=== PATIENT | female | born 1990 | race Caucasian/White ===

== ENCOUNTER 2017-05-16 11:15 | Outpatient (CLI) | payer BC ==
[2017-05-16 11:49] LABS: BASOPHILS # (AUTO) 0.1 10^3/uL (0.0-0.1); BASOPHILS % (AUTO) 0.6 %; EOSINOPHILS # (AUTO) 0.3 10^3/uL (0.0-0.7); EOSINOPHILS % (AUTO) 3.1 %; HGB - HEMOGLOBIN 14.4 g/dL (12.0-16.0); LYMPHOCYTES # (AUTO) 2.3 10^3/uL (1.5-3.5); LYMPHOCYTES % (AUTO) 27.3 %; MEAN CORPUSCULAR HEMOGLOBIN 32.8 pg (27.0-31.0); MEAN CORPUSCULAR HGB CONC 34.5 g/dL (32.0-36.0); MEAN CORPUSCULAR VOLUME 95.2 fL (81.0-99.0); MEAN PLATELET VOLUME 8.1 fL (7.9-10.8); MONOCYTES # (AUTO) 0.4 10^3/uL (0.0-1.0); MONOCYTES % (AUTO) 5.1 %; NEUTROPHILS # (AUTO) 5.4 10^3/uL (1.5-6.6); NEUTROPHILS % (AUTO) 63.9 %; PLT - PLATELET COUNT 290 10^3/uL (130-450); RED BLOOD COUNT 4.39 10^6/uL (4.20-5.40); RED CELL DISTRIBUTION WIDTH 13.6 % (12.0-15.0); WHITE BLOOD COUNT 8.5 x10^3/uL (4.8-10.8)
[2017-05-16 12:13] LABS: ALBUMIN 4.4 g/dL (3.2-5.5); ALKALINE PHOSPHATASE 62 IU/L (42-121); ALT ALANINE AMINOTRANSFERASE 41 IU/L (10-60); AST ASPARTATE AMINOTRANSFERASE 25 IU/L (10-42); BILIRUBIN,DIRECT 0.1 mg/dL (0.1-0.5); BILIRUBIN,TOTAL 0.6 mg/dL (0.2-1.0); TOTAL PROTEIN 7.5 g/dL (6.7-8.2)
[2017-05-16 12:24] LABS: HCG,QUALITATIVE BLOOD NEGATIVE
[2017-05-16 13:40] LABS: FOLLICLE STIMULATING HORMONE 6.04 mIU/mL
== END 2017-05-16 11:16 | disposition home or self-care (01) ==
LOC: LAB 11:15
PROVIDERS: ATTEND Dermatology
DX: Z79.899 Other long term (current) drug therapy (principal)
CPT/HCPCS: 36415; 80076; 81599; 83001; 83002; 84402; 84403; 84478; 84703; 85025

== ENCOUNTER 2019-01-08 03:42 | Outpatient (CLI) | payer MEDICAID | END 2019-01-08 03:43 | disposition EMS.NT | LOC: EMS 03:42 | PROVIDERS: ATTEND Surgery | DX: M54.2 Cervicalgia (principal); M51.9 Unspecified thoracic, thoracolumbar and lumbosacral intervertebral disc disorder; R11.0 Nausea; R42 Dizziness and giddiness; Y04.8XXA Assault by other bodily force, initial encounter ==

== ENCOUNTER 2019-02-20 08:05 | Outpatient (CLI) | payer MEDICAID | END 2019-02-20 08:06 | disposition critical access hospital (66) | LOC: EMS 08:05 | PROVIDERS: ATTEND Surgery | DX: R11.2 Nausea with vomiting, unspecified (principal); H53.8 Other visual disturbances; R51 Headache | CPT/HCPCS: A0425; A0429; A0999 ==

== ENCOUNTER 2019-02-20 08:25 | Emergency (ER) | payer MEDICAID ==
[2019-02-20 08:44] VITALS: BP 109/73
--- NOTE | 2019-02-20 09:18 | ED Physician Documentation ---
History of Present Illness - Stated complaint Stated Complaint: MED REACTION - Chief complaint Chief Complaint: General - History obtained from History obtained from: Patient, EMS - History of Present Illness Timing: Today - Additonal information Additional information: 28-year-old female with a history of PTSD is now 16 weeks and she is beginning to take some Effexor Exar for acute anxiety with panic attack. She states that she took her first dose this morning and within 20 minutes began to feel a plethora of symptoms including blurring of her vision and tachypnea. She has had resolution of her symptoms in route to the hospital. Review of Systems Constitutional: denies: Fever Eyes: denies: Decreased vision Ears: denies: Ear pain Nose: denies: Congestion Throat: denies: Sore throat Cardiac: denies: Chest pain / pressure, Palpitations Respiratory: denies: Dyspnea, Cough GI: reports: Abdominal Pain, Nausea, Vomiting : denies: Dysuria, Frequency Skin: denies: Rash Musculoskeletal: denies: Neck pain, Back pain, Extremity pain Neurologic: denies: Generalized weakness, Focal weakness, Numbness PD PAST MEDICAL HISTORY - Past Medical History Psych: Anxiety, Post traumatic stress disorder - Present Medications Home Medications: Ambulatory Orders Medication Instructions Recorded Confirmed RX: hydrOXYzine HCl [Hydroxyzine 10 mg PO 02/20/19 HCl] Venlafaxine [Effexor] 37.5 mg PO BID 02/20/19 02/20/19 cephALEXin [Keflex] 250 mg PO Q6H 02/20/19 02/20/19 - Allergies Allergies/Adverse Reactions: Allergies Allergy/AdvReac Type Severity Reaction Status Date / Time amoxicillin Allergy Hives Verified 02/20/19 08:35 - Social History Does the pt smoke?: No Smoking Status: Never smoker Does the pt drink ETOH?: No Does the pt have substance abuse?: No PD ED PE NORMAL - Vitals Vital signs reviewed: Yes (normal ) - General General: Alert and oriented X 3, No acute distress, Well developed/nourished - HEENT HEENT: Atraumatic, PERRL, EOMI - Neck Neck: Supple, no meningeal sign, No bony TTP - Cardiac Cardiac: RRR, No murmur - Respiratory Respiratory: No respiratory distress, Clear bilaterally - Abdomen Abdomen: Soft, Non tender, Other (gravid uterus below the umbilicus) - Back Back: No CVA TTP, No spinal TTP - Derm Derm: Normal color, Warm and dry, No rash - Extremities Extremities: No deformity, No edema - Neuro Neuro: Alert and oriented X 3, pan shaker 2-12 intact, No motor deficit, No sensory deficit, Normal speech Eye Opening: Spontaneous Motor: Obeys Commands Verbal: Oriented GCS Score: 15 - Psych Psych: Normal mood, Normal affect Results - Vitals Vitals: Vital Signs - 24 hr 02/20/19 08:31 Temperature 36.7 C Heart Rate 84 Respiratory 18 Rate Blood Pressure 109/73 O2 Saturation 100 Oxygen O2 Source Room air Procedures - Bedside sono Bedside sono by EMP: With use of bedside ultrasound the fetus is imaged has a heart rate of 144 and the biparietal diameter indicates a gestational age of 16 weeks 1 day. PD MEDICAL DECISION MAKING - ED course Complexity details: reviewed results, re-evaluated patient, considered differential, d/w patient ED course: 28 y/o female with anxiety and PTSD has started effexor and has had a reaction including nausea, vomiting, dyspnea and visual changes occurring within 20 minutes of taking the medication and now resolved. The patient's symptoms were resolved she had a photo of the baby on ultrasound appearing well and she left AMA before I was able to make it back into her room. Departure - Departure Disposition: Against Medical Advice Clinical Impression: Medication side effects Condition: Good Discharge Date/Time: 02/20/19 09:26
== END 2019-02-20 09:26 | disposition left against medical advice (07) ==
LOC: EDUNIT# → ED 08:25
DX: O9A.212 Injury, poisoning and certain other consequences of external causes complicating pregnancy, second trimester (principal); R11.2 Nausea with vomiting, unspecified; R06.82 Tachypnea, not elsewhere classified; H53.8 Other visual disturbances; T43.215A Adverse effect of selective serotonin and norepinephrine reuptake inhibitors, initial encounter; Z3A.16 16 weeks gestation of pregnancy
CPT/HCPCS: 80053; 83690; 85025; 99282; 99283

== ENCOUNTER 2020-12-22 19:47 | Outpatient (CLI) | payer MEDICAID | END 2020-12-22 19:48 | disposition critical access hospital (66) | LOC: EMS 19:47 | DX: L53.9 Erythematous condition, unspecified (principal); R60.0 Localized edema | CPT/HCPCS: A0425; A0429 ==

== ENCOUNTER 2020-12-22 20:08 | Emergency (ER) | payer MEDICAID ==
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
[2020-12-22 20:55] LABS: BASOPHILS % (AUTO) 0.2 %; EOSINOPHILS # (AUTO) 0.2 10^3/uL (0.0-0.7); EOSINOPHILS % (AUTO) 2.1 %; HCT - HEMATOCRIT 38.6 % (37.0-47.0); HGB - HEMOGLOBIN 12.6 g/dL (12.0-16.0); LYMPHOCYTES # (AUTO) 2.9 10^3/uL (1.5-3.5); LYMPHOCYTES % (AUTO) 28.4 %; MEAN CORPUSCULAR HEMOGLOBIN 32.6 pg (27.0-31.0); MEAN CORPUSCULAR HGB CONC 32.6 g/dL (32.0-36.0); MEAN CORPUSCULAR VOLUME 99.7 fL (81.0-99.0); MEAN PLATELET VOLUME 9.8 fL (7.9-10.8); MONOCYTES # (AUTO) 0.6 10^3/uL (0.0-1.0); MONOCYTES % (AUTO) 5.8 %; NEUTROPHILS # (AUTO) 6.4 10^3/uL (1.5-6.6); NEUTROPHILS % (AUTO) 63.3 %; PLT - PLATELET COUNT 236 10^3/uL (130-450); RED BLOOD COUNT 3.87 10^6/uL (4.20-5.40); RED CELL DISTRIBUTION WIDTH 12.6 % (12.0-15.0); WHITE BLOOD COUNT 10.1 x10^3/uL (4.8-10.8)
[2020-12-22] MEDS ORDERED: IOVERSOL 320 100 ML VIAL IVP ONE ×2 (20:55→23:34)
[2020-12-22 21:04] LABS: INFECTIOUS MONONUCLEOSIS NEGATIVE (Negative)
[2020-12-22 21:09] LABS: ALBUMIN 4.3 g/dL (3.2-5.5); ALBUMIN/GLOBULIN RATIO 1.8 (1.0-2.2); BILIRUBIN,TOTAL 0.7 mg/dL (0.2-1.0); CALCIUM 9.1 mg/dL (8.5-10.3); CREATININE 0.7 mg/dL (0.4-1.0); POTASSIUM 3.8 mmol/L (3.5-5.0); TOTAL PROTEIN 6.7 g/dL (6.7-8.2)
--- NOTE | 2020-12-22 21:27 | XRAY Report ---
PROCEDURE: Chest 1 View X-Ray INDICATIONS: chest pain TECHNIQUE: One view of the chest was acquired. COMPARISON: None. FINDINGS: Surgical changes and devices: None. Lungs and pleura: No pleural effusions or pneumothorax. Lungs are clear. Mediastinum: Mediastinal contours appear normal. Heart size is normal. Bones and chest wall: No suspicious bony lesions. Overlying soft tissues appear unremarkable. IMPRESSION: 1. No acute cardiopulmonary disease. Reviewed by: Saeid Sweeney MD on 12/22/2020 9:25 PM PDT Approved by: Saeid Sweeney MD on 12/22/2020 9:25 PM PDT Station ID: [id number]
[2020-12-22 21:30] LABS: RAPID STREP SCREEN Negative (Negative)
[2020-12-22 22:21] LABS: HCG UR QUAL NEGATIVE
[2020-12-22 23:40] VITALS: BP 100/70
--- NOTE | 2020-12-23 06:54 | CT Report ---
PROCEDURE: HEAD WO INDICATIONS: headache for 2 months TECHNIQUE: Noncontrast 4.5 mm thick angled axial sections acquired from the foramen magnum to the vertex. For r adiation dose reduction, the following was used: automated exposure control, adjustment of mA and/or kV according to patient size. COMPARISON: None. FINDINGS: Image quality: Excellent. CSF spaces: Basal cisterns are patent. No extra-axial fluid collections. Ventricles are normal in size and shape. Brain: No midline shift. No intracranial masses or hemorrhage. Andrea-white matter interface is norm al. Skull and face: Calvarium and visualized facial bones are intact, without suspicious lesions. Sinuses: Visualized sinuses and mastoids are clear. IMPRESSION: No acute intracranial disease process. Reviewed by: Mei Anton MD, PhD on 12/23/2020 6:53 AM PDT Approved by: Mei Anton MD, PhD on 12/23/2020 6:53 AM PDT Station ID: [id number]
--- NOTE | 2020-12-23 07:12 | CT Report ---
PROCEDURE: SOFT TISSUE NECK W INDICATIONS: swelling CONTRAST: IV CONTRAST: Optiray 320 ml: 100 PO CONTRAST: *NO PO CONTRAST TECHNIQUE: After the administration of intravenous contrast, 3.0 mm axial sections acquired from the sella to th e aortic arch. Additional oblique axial 3.0 mm sections acquired through the pharynx. 3 mm thick co winnie reformats were generated. For radiation dose reduction, the following was used: automated exp osure control, adjustment of mA and/or kV according to patient size. COMPARISON: None. FINDINGS: Image quality: Excellent. Lymph nodes: No enlarged lymph nodes seen throughout the neck. Vessels: Visualized vasculature appears patent. Neck spaces: The oropharynx, nasopharynx, and pharynx demonstrate no mucosal lesions. The vocal cor ds, false vocal cords, pyriform sinuses, epiglottis, vallecula, and tongue base all appear normal. E xtramucosal spaces appear unremarkable. Glands: The parotid and submandibular glands appear normal. The thyroid is normal in size and there are no incidental findings. Miscellaneous: Visualized brain and orbits appear normal. Lung apices appear clear. Superficial so ft tissues appear normal. Bones: No suspicious bony lesions. Visualized sinuses and mastoids appear unremarkable. IMPRESSION: 1. No soft tissue mass, soft tissue tissue edema/inflammation or abscess. 2. No mucosal-based mass. 3. No lymphadenopathy based on size criteria. Reviewed by: Mei Anton MD, PhD on 12/23/2020 7:11 AM PDT Approved by: Mei Anton MD, PhD on 12/23/2020 7:11 AM PDT Station ID: [id number]
== END 2020-12-22 23:40 | disposition home or self-care (01) ==
LOC: EDUNIT# → ED 20:08
DX: R51.9 Headache, unspecified (principal); R07.9 Chest pain, unspecified
CPT/HCPCS: 36415; 70450; 70491; 71045; 80053; 81025; 83690; 85025; 86308; 87070; 87430; 93005; 99283; 99284; Q9967

== ENCOUNTER 2021-01-22 08:00 | Outpatient (CLI) | payer MEDICAID | END 2021-01-22 23:59 | disposition home or self-care (01) | LOC: LAB.N 08:00 | PROVIDERS: ATTEND Nurse Practitioner | DX: R07.0 Pain in throat (principal); Z20.822 Contact with and (suspected) exposure to COVID-19 ==

== ENCOUNTER 2021-02-19 08:00 | Outpatient (CLI) | payer MEDICAID ==
[2021-02-19 18:40] LABS: BASOPHILS % (AUTO) 0.3 %; EOSINOPHILS # (AUTO) 0.2 10^3/uL (0.0-0.7); EOSINOPHILS % (AUTO) 2.9 %; HCT - HEMATOCRIT 41.4 % (37.0-47.0); HGB - HEMOGLOBIN 13.2 g/dL (12.0-16.0); LYMPHOCYTES # (AUTO) 1.4 10^3/uL (1.5-3.5); LYMPHOCYTES % (AUTO) 23.7 %; MEAN CORPUSCULAR HEMOGLOBIN 32.1 pg (27.0-31.0); MEAN CORPUSCULAR HGB CONC 31.9 g/dL (32.0-36.0); MEAN CORPUSCULAR VOLUME 100.7 fL (81.0-99.0); MEAN PLATELET VOLUME 10.8 fL (7.9-10.8); MONOCYTES # (AUTO) 0.4 10^3/uL (0.0-1.0); MONOCYTES % (AUTO) 6.1 %; NEUTROPHILS # (AUTO) 3.9 10^3/uL (1.5-6.6); NEUTROPHILS % (AUTO) 66.8 %; PLT - PLATELET COUNT 257 10^3/uL (130-450); RED BLOOD COUNT 4.11 10^6/uL (4.20-5.40); RED CELL DISTRIBUTION WIDTH 13.1 % (12.0-15.0); WHITE BLOOD COUNT 5.8 x10^3/uL (4.8-10.8)
[2021-02-19 18:46] LABS: BILIRUBIN,URINE NEGATIVE (NEGATIVE); GLUCOSE, URINE (UA) NEGATIVE (NEGATIVE); KETONES,URINE (UA) NEGATIVE (NEGATIVE); LEUKOCYTE ESTERASE, URINE NEGATIVE (NEGATIVE); NITRITE,URINE NEGATIVE (NEGATIVE); OCCULT BLOOD,URINE NEGATIVE (NEGATIVE); PROTEIN,URINE NEGATIVE (NEGATIVE); UROBILINOGEN,URINE 0.2 (NORMAL) E.U./dL (NORMAL)
[2021-02-19 20:21] LABS: BACTERIA,URINE None Seen /HPF (None Seen); CLARITY,URINE CLEAR (CLEAR); CRYSTALS,URINE 11-25 Ca Oxalate /LPF; RBC,URINE 0-5 /HPF (0-5); SQUAMOUS EPITHELIAL CELL,UR RARE Squamous (<= Few); WBC,URINE 0-3 /HPF (0-5)
[2021-02-19 20:22] LABS: ALBUMIN 4.4 g/dL (3.2-5.5); ALBUMIN/GLOBULIN RATIO 1.7 (1.0-2.2); BILIRUBIN,TOTAL 0.6 mg/dL (0.2-1.0); CALCIUM 8.9 mg/dL (8.5-10.3); CREATININE 0.7 mg/dL (0.4-1.0); POTASSIUM 4.5 mmol/L (3.5-5.0)
== END 2021-02-19 23:59 | disposition home or self-care (01) ==
LOC: LAB.N 08:00
PROVIDERS: ATTEND Family Medicine
DX: R10.9 Unspecified abdominal pain (principal)
CPT/HCPCS: 36415; 80053; 81001; 82150; 83690; 85025; 87086